=== PATIENT | female | born 1955 | race Caucasian/White ===

== ENCOUNTER → 2017-10-09 | Outpatient (CLI) | payer OTHER ==
[2017-10-09 12:11] LABS: HEMATOCRIT 33.5 % (37-47); HEMOGLOBIN 10.2 g/dL (12.0-16.0); MEAN CELL VOLUME 72.2 fL (80-100); MEAN CORPUSCULAR HGB CONC 30.4 g/dl (32-36); MEAN PLATELET VOLUME 9.7 fL (7.4-10.4); PLATELET COUNT 271 K/uL (130-400); RED CELL DISTRIBUTION WIDTH CV 18.2 % (11.5-14.5); RED CELL DISTRIBUTION WIDTH SD 48.2 fL (36.4-46.3); WHITE BLOOD COUNT 5.43 K/uL (4.8-10.8)
[2017-10-09 12:27] LABS: ALBUMIN 4.1 gm/dl (3.4-5.0); ALKALINE PHOSPHATASE 85 U/L (45-117); ALT/SGPT 28 U/L (12-78); AST/SGOT 25 U/L (15-37); BLOOD UREA NITROGEN 15 mg/dl (7-18); CALCIUM 8.7 mg/dl (8.5-10.1); CARBON DIOXIDE 27 mmol/L (21-32); CHOLESTEROL 258 mg/dl (0-200); CREATININE 0.83 mg/dl (0.60-1.20); GLUCOSE 91 mg/dl (70-99); LDL CHOLESTEROL CALCULATED 152 mg/dl; POTASSIUM 4.4 mmol/L (3.5-5.1); SODIUM 139 mmol/L (136-145); TOTAL PROTEIN 7.2 gm/dl (6.4-8.2)
[2017-10-09 12:32] LABS: BASO % 0.6 %; BASO ABS # 0.03 K/uL (0-0.2); EOS % 1.5 %; EOS ABS # 0.08 K/uL (0-0.5); IG# 0.01 K/uL (0.00-0.02); LYMPH % 23.4 %; LYMPH ABS # 1.27 K/uL (1.2-3.4); MONO % 6.1 %; MONO ABS # 0.33 K/uL (0.11-0.59); NEUT % 68.2 %; NEUT ABS # 3.71 K/uL (1.4-6.5)
== END | disposition home or self-care (01) ==
LOC: C.LAB1850 10:02
PROVIDERS: ATTEND Physician Assistant
DX: Z00.00 Encounter for general adult medical examination without abnormal findings (principal)

== ENCOUNTER 2022-07-21 08:20 | Inpatient (IN) ==
[2022-07-21] MEDS ORDERED: SODIUM CHLORIDE 0.9% 500 ML IV ONE (08:35)
[2022-07-21] MEDS ORDERED: ALBUT/IPRATROP 3MG/0.5MG NEB 3 ML VIAL NEB ONE (08:52)
[2022-07-21] MEDS ORDERED: methylPREDNISolone 125 MG/2 ML VIAL IV STA (08:57)
[2022-07-21] MEDS ORDERED: guaiFENesin 600 MG TABCR PO STA (08:57)
--- NOTE | 2022-07-21 09:11 | Emergency Department Note ---
Impression & Plan Multifocal pneumonia, Rhinovirus infection, COPD exacerbation, Elevated troponin, Chronic hypoxemic respiratory failure, Anemia ED Provider Note NAME: LAURITA FIGUEROA AGE: 67 SEX: F ARRIVES VIA: Walk-In INFORMANT: Patient ED PROVIDER(S): Lorenzo Stuart MD CHIEF COMPLAINT: SOB PLAN: Disposition: Admit MEDICAL DECISION MAKING: The patient is a pleasant 67-year-old woman with a past medical history of COPD, history of tobacco abuse, chronic hypoxic respiratory failure who presents emergency department via walk-in, accompanied by her daughter for evaluation of worsening shortness of breath since last night in the setting of having cough and congestion that began a week ago that initially improved with treatment with steroids and an antibiotic which were prescribed following valuation at urgent care. However since last night she reports feeling acutely worse where she cannot catch her breath. She reports pain with inspiration in the left lower anterior chest. She denies any recent fevers. She denies nausea, vomiting, diarrhea or urinary symptoms. The patient ports she does have oxygen at home as needed but does not usually use it. On arrival the patient is uncomfortable no acute distress, afebrile with heart rate in the 90s and vital signs otherwise stable. O2 saturations 92% on room air with mild increased work of breathing. Lungs with wheezes and rhonchi of the left greater than right lung rome. EKG without overt acute ischemia. CXR with bibasilar airspace opacities suspicious for pneumonia given the patient's presentation. WBC 27K with neutrophil predominance though no left shift this time which may be related to component of her recent steroid course but also with concern for pneumonia. H/H 10.8/33.5 decreased from November without more recent for comparison. Chemistry without metabolic acidosis with initial lactic acid elevated 2.4 suspected to be related to the patient's forceful coughing and work of breathing. Electrolytes without significant abnormality. LFTs unremarkable. High-sensitivity troponin 43, non-specific. Lipase is within normal limits. Procalcitonin is not elevated. Respiratory viral panel/bio fire was positive for enterovirus/rhinovirus. CTA of the chest was performed and was negative for PE though evaluation of distal segmental and subsegmental branches was degraded by motion artifact. Multifocal airspace consolidation is present at bilateral lung bases and is typical/suspicious for pneumonia/aspiration pneumonitis. Given the patient's presentation she was treated with IV Unasyn and azithromycin for suspected bacterial coinfection/aspiration pneumonia. She was additionally treated with Solu-Medrol, guaifenesin, hour-long DuoNeb with subsequent improvement in the patient's respiratory status. Patient family agree with plan for admission. [facility] [place] with Dr. Samayoa, evaluated the patient for admission. Triage Nursing notes reviewed and agree them. Prior/outside medical records reviewed Vital Signs: reviewed Differential diagnosis: Cardiac ischemia, aortic dissection, pulmonary embolism, pneumothorax, pneumonia, pericarditis, myocarditis, esophageal rupture, GERD, cholecystitis, p ancreatitis, musculoskeletal, as well as other pathologies. ER treatment provided: See below. Diagnostics interpreted by me: ECG: Normal sinus rhythm, 93 bpm, no ectopy, nonspecific ST abnormality, no overt ST elevation or depression, QTc 455, QRS 84 Cardiac Monitoring: An order for continuous cardiac monitoring was placed and demonstrated Normal sinus rhythm, 93 bpm, no ectopy. Laboratory studies: See below Imaging studies: See below Consultation(s): [facility] [place] with Dr. Samayoa, evaluated the patient for admission. HPI: The patient is a pleasant 67-year-old woman with a past medical history of COPD, history of tobacco abuse, chronic hypoxic respiratory failure who presents emergency department via walk-in, accompanied by her daughter for evaluation of worsening shortness of breath since last night in the setting of having cough and congestion that began a week ago that initially improved with treatment with steroids and an antibiotic which were prescribed following valuation at urgent care. However since last night she reports feeling acutely worse where she ca nnot catch her breath. She reports pain with inspiration in the left lower anterior chest. She denies any recent fevers. She denies nausea, vomiting, diarrhea or urinary symptoms. The patient ports she does have oxygen at home as needed but does not usually use it. ROS: See above HPI for pertinent positives & negatives. A total of 10 systems reviewed and were otherwise negative. VITALS:See Below PHYSICAL EXAMINATION: GENERAL: Awake, alert, uncomfortable-appearing, in no acute distress HENT: Normocephalic, atraumatic. Oropharynx with dry mucous membranes and otherwise unremarkable. EYES: Normal conjunctiva. Sclera non-icteric. NECK: Supple. No nuchal rigidity. FROM. No JVD. RESPIRATORY: Mild increased work of breathing. Lungs with wheezes and rhonchi of the left greater than right lung rome. CARDIAC: Regular rate, normal rhythm. Extremities warm and well perfused. Pulses equal. ABDOMEN: Soft, non-distended. No tenderness to palpation. No rebound or guarding. No masses. RECTAL: Deferred. MUSCULOSKELETAL: Chest examination reveals no tenderness. The back is symmetrical on inspection without obvious abnormality. There is no CVA tenderness to palpation. No joint edema. LOWER EXTREMITIES: Calves are equal size bilaterally and non-tender. No edema. No discoloration. NEURO: Normal sensorium. No sensory or motor deficits noted. SKIN: No rash or jaundice noted. ED COURSE: Critical Care: I have personally spent greater than 35 minutes of critical care time in the direct management of this patient. This includes bedside care, interpretation of diagnostic studies, and testing, discussion with consultants, patient, and family members, and other required patient management activities. This 35 minutes is in excess of all separately billable procedures. Lorenzo Stuart MD Past Med/Surg History Medical History Anemia iron daily Chronic hypoxemic respiratory failure COPD (chronic obstructive pulmonary disease) inhaler daily History of stomach ulcers History of tobacco abuse Melena Obesity (BMI 30.0-34.9) On home oxygen therapy oxygen 2L n/c prn Positive FIT (fecal immunochemical test) Rectal bleed 02/20/21 x1 episode. reason for procedure. SOB (shortness of breath) on exertion uses oxygen 2L prn SOB (shortness of breath) on exertion Surgical History H/O removal of cyst removed off head History of bilateral tubal ligation History of colonoscopy History of esophagogastroduodenoscopy (EGD) History of tooth extraction all teeth removed Family History Mother Ovarian cancer Breast cancer Sister Breast cancer Family/Other No problems noted. Father Diabetes Myocardial infarction Son Family history of reaction to anesthesia has difficulty waking with anesthesia Denies family history of Prostate cancer Colorectal cancer Social History Smoking Status: Former smoker Second Hand Exposure: No; Do You Dip or Chew Tobacco: No; Hx Alcohol Use: No Hx Substance Use: No Preferred Language: Malagasy Communication Ability: Effective Time Recorder Required: No Beliefs That Will Affect Care: None marital status: Single Current Living Situation: Family Current Living Situation Comment: Lives with daughter and 4 grandkids current occupational status: employed current occupation: [employer] Other Information That Helps Us Care for You: No Feels Safe at Home: Yes Safety Concerns: Feels Safe At This Time Childhood Exposure to Second-Hand Smoke: Yes Dental Care, Regularly: No Physical Activity Frequency: 5-6 Times per Week Seatbelt Use: always Sunscreen Use: Yes Assistive Devices: Denture - Upper, Denture - Lower and Glasses Allergies Allergies Allergy/AdvReac Type Severity Reaction Status Date / Time No Known Allergies Allergy Verified 03/22/22 13:27 Home Meds Home Medications Medication Instructions Recorded Confirmed Bifidobacterium infantis 4 mg 4 mg PO DAILY 02/22/21 07/21/22 capsule (Align) multivitamin 30 ml PO DAILY 07/21/22 07/21/22 Previous Rx's Medication Instructions Recorded Oxygen Home #2 L 06/12/19 albuterol sulfate 90 mcg/actuation 2 inh inhalation Q6H PRN shortness 09/14/21 aerosol inhaler of breath or wheezing #18 grams fluticasone fur. 100 mcg-umeclid 1 inh inhalation QAM #60 ea 07/11/22 62.5 mcg-vilant 25 mcg inhalat.powder (Trelegy Ellipta) Results & Data (ED) Vital Signs Vital Signs - 24 hr 07/21/22 08:28 07/21/22 08:35 07/21/22 08:47 Temperature 36.6 C Temperature Source Temporal Artery Scan Pulse Rate 104 H 99 H Pulse Rate [Apical] Pulse Rhythm Regular Respiratory Rate 18 Respiratory Effort / Characteristics Respiratory Depth Normal Respiratory Pattern Blood Pressure 147/88 H Blood Pressure [Left Arm] Blood Pressure Mean 107 Blood Pressure Mean [Left Arm] Blood Pressure Position Sitting Pulse Oximetry 93 91 Oxygen Delivery Method Room Air Room Air Room Air Sepsis Recent Fever Within 48 Hours No Sepsis New/Unexplained Change in Mental Status No Sepsis Action Taken by Nursing No Action Required 07/21/22 08:47 07/21/22 09:08 07/21/22 10:00 Temperature Temperature Source Pulse Rate 96 H Pulse Rate [Apical] 103 H Pulse Rhythm Respiratory Rate 20 Respiratory Effort / Characteristics Non-Labored Spontaneous Respiratory Depth Normal Normal Respiratory Pattern Regular Blood Pressure Blood Pressure [Left Arm] 114/75 Blood Pressure Mean Blood Pressure Mean [Left Arm] 88 Blood Pressure Position Pulse Oximetry 92 Oxygen Delivery Method Room Air Room Air Sepsis Recent Fever Within 48 Hours Sepsis New/Unexplained Change in Mental Status Sepsis Action Taken by Nursing 07/21/22 11:30 07/21/22 12:12 07/21/22 13:18 Temperature Temperature Source Pulse Rate 104 H Pulse Rate [Apical] 112 H 91 H Pulse Rhythm Respiratory Rate 21 19 Respiratory Effort / Characteristics Non-Labored Spontaneous Non-Labored Spontaneous Respiratory Depth Normal Normal Respiratory Pattern Regular Regular Blood Pressure Blood Pressure [Left Arm] 135/67 Blood Pressure Mean Blood Pressure Mean [Left Arm] 89 Blood Pressure Position Pulse Oximetry 91 91 Oxygen Delivery Method Room Air Room Air Sepsis Recent Fever Within 48 Hours Sepsis New/Unexplained Change in Mental Status Sepsis Action Taken by Nursing Laboratory Data Attestation: I reviewed the patient's lab results. 07/21/22 08:59 07/21/22 08:59 Lab Results 07/21/22 07/21/22 07/21/22 Range/Units 08:46 08:59 08:59 WBC 27.15 H (4.8-10.8) K/ul RBC 4.08 L (4.20-5.40) M/uL Hgb 10.8 L (12.0-16.0) g/dl Hct 33.5 L (37.0-47.0) % MCV 82.1 (80.0-100.0) fL MCH 26.5 (25.0-34.0) pg MCHC 32.2 (32.0-36.0) g/dL RDW Std Deviation 45.4 (36.4-46.3) fL RDW Coeff of Martine 15.1 H (11.5-14.5) % Plt Count 224 (130-400) K/uL MPV 10.3 (9.4-12.4) fL Immature Gran % (Auto) 0.7 % Neut % (Auto) 91.5 % Lymph % (Auto) 3.2 % Barrow % (Auto) 4.3 % Eos % (Auto) 0.1 % Baso % (Auto) 0.2 % Neut # (Auto) 24.84 H (1.40-6.50) K/uL Lymph # (Auto) 0.87 L (1.2-3.4) K/uL Barrow # (Auto) 1.17 H (0.11-0.59) K/uL Eos # (Auto) 0.02 (0-0.50) K/uL Baso # (Auto) 0.06 (0-0.2) K/uL Immature Gran # (Auto) 0.19 (0.01-0.20) K/uL Sodium 139 (136-145) mmol/L Potassium 4.0 (3.5-5.1) mmol/L Chloride 106 (98-107) mmol/L Carbon Dioxide 24 (21-32) mmol/L Anion Gap 9 (3-11) BUN 14 (6-23) mg/dl Creatinine 0.69 (0.6-1.2) mg/dl Est Cr Clr Drug Dosing 78.6 ml/min Est GFR ( Amer) 105.9 ml/min Est GFR (Non-Af Amer) 91.4 ml/min BUN/Creatinine Ratio 20.3 H (10-20) Glucose 112 H (70-99(Fasting)) mg/dl Lactate (0.4-2.0) mmol/L Calcium 9.3 (8.6-10.3) mg/dl Magnesium 1.9 (1.7-2.4) mg/dl Total Bilirubin 0.5 (0.2-1.0) mg/dl AST 18 (13-39) U/L ALT 15 (7-52) U/L Alkaline Phosphatase 68 (34-104) U/L Troponin I High Sens 43.8 H (0-14) pg/ml Total Protein 6.8 (6.0-8.3) gm/dl Albumin 4.2 (3.4-5.0) gm/dl Globulin 2.6 (2.5-4.0) gm/dl Albumin/Globulin Ratio 1.6 (0.9-2) Lipase 13 (11-82) U/L Procalcitonin (0-0.5) ng/ml Adenovirus (PCR) Not Detected (NotDetected) B. pertussis DNA (PCR) Not Detected (NotDetected) B.parapertussis DNA PCR Not Detected (NotDetected) C. pneumoniae DNA (PCR) Not Detected (NotDetected) Coronavirus OC43 (PCR) Not Detected (NotDetected) Coronavirus HKU1 (PCR) Not Detected (NotDetected) Coronavirus 229E (PCR) Not Detected (NotDetected) SARS-CoV-2 (PCR) Not Detected (NotDetected) Coronavirus NL63 (PCR) Not Detected (NotDetected) Human Metapneumovir PCR Not Detected (NotDetected) Influenza Type A (PCR) Not Detected (NotDetected) Influenza Type B (PCR) Not Detected (NotDetected) M. pneumoniae (PCR) Not Detected (NotDetected) Parainfluenza 1 (PCR) Not Detected (NotDetected) Parainfluenza 2 (PCR) Not Detected (NotDetected) Parainfluenza 3 (PCR) Not Detected (NotDetected) Parainfluenza 4 (PCR) Not Detected (NotDetected) RSV (PCR) Not Detected (NotDetected) Entero/Rhino (PCR) DETECTED A* (NotDetected) 07/21/22 07/21/22 07/21/22 Range/Units 09:00 12:02 13:00 WBC (4.8-10.8) K/ul RBC (4.20-5.40) M/uL Hgb (12.0-16.0) g/dl Hct (37.0-47.0) % MCV (80.0-100.0) fL MCH (25.0-34.0) pg MCHC (32.0-36.0) g/dL RDW Std Deviation (36.4-46.3) fL RDW Coeff of Martine (11.5-14.5) % Plt Count (130-400) K/uL MPV (9.4-12.4) fL Immature Gran % (Auto) % Neut % (Auto) % Lymph % (Auto) % Barrow % (Auto) % Eos % (Auto) % Baso % (Auto) % Neut # (Auto) (1.40-6.50) K/uL Lymph # (Auto) (1.2-3.4) K/uL Barrow # (Auto) (0.11-0.59) K/uL Eos # (Auto) (0-0.50) K/uL Baso # (Auto) (0-0.2) K/uL Immature Gran # (Auto) (0.01-0.20) K/uL Sodium (136-145) mmol/L Potassium (3.5-5.1) mmol/L Chloride (98-107) mmol/L Carbon Dioxide (21-32) mmol/L Anion Gap (3-11) BUN (6-23) mg/dl Creatinine (0.6-1.2) mg/dl Est Cr Clr Drug Dosing ml/min Est GFR ( Amer) ml/min Est GFR (Non-Af Amer) ml/min BUN/Creatinine Ratio (10-20) Glucose (70-99(Fasting)) mg/dl Lactate 2.4 H* (0.4-2.0) mmol/L Calcium (8.6-10.3) mg/dl Magnesium (1.7-2.4) mg/dl Total Bilirubin (0.2-1.0) mg/dl AST (13-39) U/L ALT (7-52) U/L Alkaline Phosphatase (34-104) U/L Troponin I High Sens 31.0 H D (0-14) pg/ml Total Protein (6.0-8.3) gm/dl Albumin (3.4-5.0) gm/dl Globulin (2.5-4.0) gm/dl Albumin/Globulin Ratio (0.9-2) Lipase (11-82) U/L Procalcitonin 0.28 (0-0.5) ng/ml Adenovirus (PCR) (NotDetected) B. pertussis DNA (PCR) (NotDetected) B.parapertussis DNA PCR (NotDetected) C. pneumoniae DNA (PCR) (NotDetected) Coronavirus OC43 (PCR) (NotDetected) Coronavirus HKU1 (PCR) (NotDetected) Coronavirus 229E (PCR) (NotDetected) SARS-CoV-2 (PCR) (NotDetected) Coronavirus NL63 (PCR) (NotDetected) Human Metapneumovir PCR (NotDetected) Influenza Type A (PCR) (NotDetected) Influenza Type B (PCR) (NotDetected) M. pneumoniae (PCR) (NotDetected) Parainfluenza 1 (PCR) (NotDetected) Parainfluenza 2 (PCR) (NotDetected) Parainfluenza 3 (PCR) (NotDetected) Parainfluenza 4 (PCR) (NotDetected) RSV (PCR) (NotDetected) Entero/Rhino (PCR) (NotDetected) 07/21/22 Range/Units 13:55 WBC (4.8-10.8) K/ul RBC (4.20-5.40) M/uL Hgb (12.0-16.0) g/dl Hct (37.0-47.0) % MCV (80.0-100.0) fL MCH (25.0-34.0) pg MCHC (32.0-36.0) g/dL RDW Std Deviation (36.4-46.3) fL RDW Coeff of Martine (11.5-14.5) % Plt Count (130-400) K/uL MPV (9.4-12.4) fL Immature Gran % (Auto) % Neut % (Auto) % Lymph % (Auto) % Barrow % (Auto) % Eos % (Auto) % Baso % (Auto) % Neut # (Auto) (1.40-6.50) K/uL Lymph # (Auto) (1.2-3.4) K/uL Barrow # (Auto) (0.11-0.59) K/uL Eos # (Auto) (0-0.50) K/uL Baso # (Auto) (0-0.2) K/uL Immature Gran # (Auto) (0.01-0.20) K/uL Sodium (136-145) mmol/L Potassium (3.5-5.1) mmol/L Chloride (98-107) mmol/L Carbon Dioxide (21-32) mmol/L Anion Gap (3-11) BUN (6-23) mg/dl Creatinine (0.6-1.2) mg/dl Est Cr Clr Drug Dosing ml/min Est GFR ( Amer) ml/min Est GFR (Non-Af Amer) ml/min BUN/Creatinine Ratio (10-20) Glucose (70-99(Fasting)) mg/dl Lactate 2.7 H* (0.4-2.0) mmol/L Calcium (8.6-10.3) mg/dl Magnesium (1.7-2.4) mg/dl Total Bilirubin (0.2-1.0) mg/dl AST (13-39) U/L ALT (7-52) U/L Alkaline Phosphatase (34-104) U/L Troponin I High Sens (0-14) pg/ml Total Protein (6.0-8.3) gm/dl Albumin (3.4-5.0) gm/dl Globulin (2.5-4.0) gm/dl Albumin/Globulin Ratio (0.9-2) Lipase (11-82) U/L Procalcitonin (0-0.5) ng/ml Adenovirus (PCR) (NotDetected) B. pertussis DNA (PCR) (NotDetected) B.parapertussis DNA PCR (NotDetected) C. pneumoniae DNA (PCR) (NotDetected) Coronavirus OC43 (PCR) (NotDetected) Coronavirus HKU1 (PCR) (NotDetected) Coronavirus 229E (PCR) (NotDetected) SARS-CoV-2 (PCR) (NotDetected) Coronavirus NL63 (PCR) (NotDetected) Human Metapneumovir PCR (NotDetected) Influenza Type A (PCR) (NotDetected) Influenza Type B (PCR) (NotDetected) M. pneumoniae (PCR) (NotDetected) Parainfluenza 1 (PCR) (NotDetected) Parainfluenza 2 (PCR) (NotDetected) Parainfluenza 3 (PCR) (NotDetected) Parainfluenza 4 (PCR) (NotDetected) RSV (PCR) (NotDetected) Entero/Rhino (PCR) (NotDetected) Administered Medications Ampicillin Sodium/Sulbactam Sodium 1,500 mg/ Sodium Chloride 104 mls @ 200 mls/hr IV Q6H [facility]; Protocol Stop: 07/28/22 15:59 Last Admin: 07/21/22 22:16 Dose: 200 mls/hr Documented By: Infusion: 07/21/22 17:48 Dose: 0 mls/hr Documented By: Admin: 07/21/22 17:16 Dose: 200 mls/hr Documented By: KRISTI Discontinued Medications Albuterol (Albut/Ipratrop 3mg/0.5mg Neb 3 Ml Vial) 12 ml NEB ONE ONE; Protocol Stop: 07/21/22 08:53 Last Admin: 07/21/22 10:05 Dose: 12 ml Documented By: KEENA Guaifenesin (Guaifenesin 600 Mg Tabcr) 1,200 mg PO NOW STA Stop: 07/21/22 08:58 Last Admin: 07/21/22 09:14 Dose: 1,200 mg Documented By: KEENA Sodium Chloride (Nss) 500 mls @ 999 mls/hr IV .Q31M ONE Stop: 07/21/22 09:05 Last Infusion: 07/21/22 09:46 Dose: 0 mls/hr Documented By: Admin: 07/21/22 09:15 Dose: 999 mls/hr Documented By: KEENA Ampicillin Sodium/Sulbactam Sodium 3,000 mg/ Sodium Chloride 108 mls @ 200 mls/hr IV NOW STA; Protocol Stop: 07/21/22 12:18 Last Infusion: 07/21/22 12:55 Dose: 0 mls/hr Documented By: Admin: 07/21/22 12:18 Dose: 200 mls/hr Documented By: KEENA Azithromycin 500 mg/ Dextrose 255 mls @ 127.5 mls/hr IV NOW STA Stop: 07/21/22 13:45 Last Infusion: 07/21/22 15:40 Dose: 0 mls/hr Documented By: Admin: 07/21/22 12:59 Dose: 127.5 mls/hr Documented By: KEENA Ioversol (Optiray 320 500ml) 120 ml IV ONCE ONE Stop: 07/21/22 11:12 Last Admin: 07/21/22 11:12 Dose: 120 ml Documented By: DEBI Methylprednisolone (Methylprednisolone 125 Mg/2 Ml Vial) 125 mg IV NOW STA Stop: 07/21/22 08:58 Last Admin: 07/21/22 09:14 Dose: 125 mg Documented By: KEENA Imaging Data Radiologist's Impression: Chest CTA 07/21/22 08:59 CT ANGIOGRAM OF THE CHEST CLINICAL HISTORY: Dyspnea. Atypical chest pain. COMPARISON STUDY: Chest x-ray dated 07/21/2022. Chest CT dated 10/26/2021. TECHNIQUE: Following the IV administration of 120 cc of Optiray 320, CT angiogram of the chest was performed from the upper abdomen to the thoracic inlet utilizing the pulmonary embolus protocol. Images are reviewed in the axial, sagittal, and coronal planes. 3-D MIPS images are created and assessed. IV contrast was administered without complication. A dose lowering technique was utilized adhering to the principles of ALARA. The examination is significantly degraded by motion artifact. CT DOSE: 404.84 mGy.cm FINDINGS: Thyroid: Imaged portions of the thyroid gland are normal in size and attenuation. Thoracic aorta: There is atherosclerotic calcification of the thoracic aorta, which is normal in caliber and demonstrates standard 3-vessel arch anatomy. No dissection is seen. Pulmonary vasculature: The main pulmonary arteries are dilated suggesting pulmonary artery hypertension. There are no filling defects identified in main, lobar, or proximal segmental pulmonary branches to suggest pulmonary embolus. Evaluation of the distal segmental and subsegmental branches is degraded by motion artifact. Heart: The heart is top normal in size and without pericardial effusion. There are coronary artery calcifications. Lungs and pleural spaces: Evaluation of the lung parenchyma is significantly compromised by motion artifact. Emphysematous changes noted. There is multifocal patchy airspace consolidation seen at both lung bases, left greater than right. No pleural effusion is identified. The trachea and central airways appear clear. Mediastinum: There is no mediastinal lymphadenopathy. Gianna: Clear. Axillae: There is no axillary lymphadenopathy. Upper abdomen: Partially visualized upper abdominal viscera is within normal limits. Skeletal structures: The skeletal structures are osteopenic. No lytic or blastic bony lesions are seen. IMPRESSION: 1. Significantly motion degraded examination. 2. There is no evidence of central pulmonary embolus in the main, lobar, or proximal segmental pulmonary arteries. Evaluation of the distal segmental and subsegmental branches is significantly degraded by motion artifact. 3. Emphysema. 4. Multifocal airspace consolidation is present at both lung bases. This is typical for pneumonia/aspiration pneumonitis. Clinical correlation will be required and radiographic follow-up to resolution is recommended. 5. Additional findings as above. ACT 112: Negative or not required by law. Electronically signed by: Bal Douglas M.D. 07/21/2022 11:38 AM Discharge Plan Visit Data Chief Complaint: Shortness of Breath/Dyspnea Stated Complaint: SOB, CHEST PAIN ED Provider: Lorenzo Stuart Discharge Problem: Multifocal pneumonia, Rhinovirus infection, COPD exacerbation, Elevated troponin, Chronic hypoxemic respiratory failure, Anemia Patient Disposition: Admitted As Inpatient Discharge Instructions Interventions: ED Discharge Assessment Last Done: 07/21/22 15:36
--- NOTE | 2022-07-21 09:44 | XRay Report ---
SINGLE VIEW CHEST CLINICAL HISTORY: Atypical chest pain FINDINGS: An AP, portable, upright chest radiograph is compared to study dated 06/12/2019 and correlat ed with chest CT dated 10/26/2021. The examination is degraded by portable technique and apical lordoti c positioning. The cardiomediastinal silhouette is unremarkable noting atherosclerotic calcification of the thoracic aorta. Emphysema and chronic interstitial thickening is similar to previous. There ar e bibasilar airspace opacities. No large pleural effusion or pneumothorax Is seen. The skeletal struc tures are osteopenic. The bony thorax is grossly intact. IMPRESSION: 1. Bibasilar airspace opacities likely represent scarring/atelectasis. Correlate clinically for evide nce of a superimposed infectious/inflammatory pneumonitis. 2. Emphysema. ACT 112: Negative or not required by law. Electronically signed by: Bal Douglas M.D. 07/21/2022 9:43 AM
[2022-07-21 09:46] LABS: Albumin Globulin Ratio 1.6 (0.9-2); Albumin Level 4.2 gm/dl (3.4-5.0); BUN Creatinine Ratio 20.3 (10-20); Bilirubin,Total 0.5 mg/dl (0.2-1.0); Calcium 9.3 mg/dl (8.6-10.3); Creatinine Clr Calc Pharmacy 78.6 ml/min; Est GFR (African American) 105.9 ml/min; Est GFR (Non-African American) 91.4 ml/min; Globulin 2.6 gm/dl (2.5-4.0); Magnesium 1.9 mg/dl (1.7-2.4); Total Protein 6.8 gm/dl (6.0-8.3)
[2022-07-21 09:49] LABS: Hematocrit (blood only) 33.5 % (37.0-47.0); Hemoglobin 10.8 g/dl (12.0-16.0); Mean Corpuscular Hemoglobin 26.5 pg (25.0-34.0); Mean Corpuscular Hgb Conc 32.2 g/dL (32.0-36.0); Mean Corpuscular Volume 82.1 fL (80.0-100.0); Mean Platelet Volume 10.3 fL (9.4-12.4); Platelet Count 224 K/uL (130-400); RDW Coefficient of Variation 15.1 % (11.5-14.5); RDW Standard Deviation 45.4 fL (36.4-46.3); Red Blood Count 4.08 M/uL (4.20-5.40); White Blood Count 27.15 K/ul (4.8-10.8)
[2022-07-21 09:52] LABS: Troponin I High Sensitivity 43.8 pg/ml (0-14)
[2022-07-21 10:15] LABS: Basophils # (auto) 0.06 K/uL (0-0.2); Basophils % (auto) 0.2 %; Eosinophils # (auto) 0.02 K/uL (0-0.50); Eosinophils % (auto) 0.1 %; Immature Granulocytes # (auto) 0.19 K/uL (0.01-0.20); Immature Granulocytes % (auto) 0.7 %; Lymphocytes # (auto) 0.87 K/uL (1.2-3.4); Lymphocytes % (auto) 3.2 %; Monocytes # (auto) 1.17 K/uL (0.11-0.59); Monocytes % (auto) 4.3 %; Neutrophils # (auto) 24.84 K/uL (1.40-6.50); Neutrophils % (auto) 91.5 %
[2022-07-21 10:41] LABS: Adenovirus PCR Not Detected (NotDetected); Bordetella parapertussis PCR Not Detected (NotDetected); Bordetella pertussis PCR Not Detected (NotDetected); Chlamydia pneumoniae PCR Not Detected (NotDetected); Coronavirus 229E PCR Not Detected (NotDetected); Coronavirus CoV-2 (COVID19)PCR Not Detected (NotDetected); Coronavirus HKU1 PCR Not Detected (NotDetected); Coronavirus NL63 PCR Not Detected (NotDetected); Coronavirus OC43PCR Not Detected (NotDetected); Human Metapneumovirus PCR Not Detected (NotDetected); Influenza A PCR Not Detected (NotDetected); Influenza B PCR Not Detected (NotDetected); Mycoplasma pneumoniae PCR Not Detected (NotDetected); Parainfluenza Virus 1 PCR Not Detected (NotDetected); Parainfluenza Virus 2 PCR Not Detected (NotDetected); Parainfluenza Virus 3 PCR Not Detected (NotDetected); Parainfluenza Virus 4 PCR Not Detected (NotDetected); Respiratory Syncytial VirusPCR Not Detected (NotDetected)
[2022-07-21 10:53] LABS: Rhinovirus/Enterovirus PCR DETECTED (NotDetected)
[2022-07-21] MEDS ORDERED: OPTIRAY 320 500ml IV ONE (11:11)
--- NOTE | 2022-07-21 11:40 | CT Scan Report ---
CT ANGIOGRAM OF THE CHEST CLINICAL HISTORY: Dyspnea. Atypical chest pain. COMPARISON STUDY: Chest x-ray dated 07/21/2022. Chest CT dated 10/26/2021. TECHNIQUE: Following the IV administration of 120 cc of Optiray 320, CT angiogram of the chest was pe rformed from the upper abdomen to the thoracic inlet utilizing the pulmonary embolus protocol. Images are reviewed in the axial, sagittal, and coronal planes. 3-D MIPS images are created and assessed. I V contrast was administered without complication. A dose lowering technique was utilized adhering to the principles of ALARA. The examination is significantly degraded by motion artifact. CT DOSE: 404.84 mGy.cm FINDINGS: Thyroid: Imaged portions of the thyroid gland are normal in size and attenuation. Thoracic aorta: There is atherosclerotic calcification of the thoracic aorta, which is normal in linda denise and demonstrates standard 3-vessel arch anatomy. No dissection is seen. Pulmonary vasculature: The main pulmonary arteries are dilated suggesting pulmonary artery hypertensi on. There are no filling defects identified in main, lobar, or proximal segmental pulmonary branches to suggest pulmonary embolus. Evaluation of the distal segmental and subsegmental branches is degrade d by motion artifact. Heart: The heart is top normal in size and without pericardial effusion. There are coronary artery ca lcifications. Lungs and pleural spaces: Evaluation of the lung parenchyma is significantly compromised by motion ar tifact. Emphysematous changes noted. There is multifocal patchy airspace consolidation seen at both l karina bases, left greater than right. No pleural effusion is identified. The trachea and central airway s appear clear. Mediastinum: There is no mediastinal lymphadenopathy. Gianna: Clear. Axillae: There is no axillary lymphadenopathy. Upper abdomen: Partially visualized upper abdominal viscera is within normal limits. Skeletal structures: The skeletal structures are osteopenic. No lytic or blastic bony lesions are see n. IMPRESSION: 1. Significantly motion degraded examination. 2. There is no evidence of central pulmonary embolus in the main, lobar, or proximal segmental pulmon sujit arteries. Evaluation of the distal segmental and subsegmental branches is significantly degraded by motion artifact. 3. Emphysema. 4. Multifocal airspace consolidation is present at both lung bases. This is typical for pneumonia/asp iration pneumonitis. Clinical correlation will be required and radiographic follow-up to resolution i s recommended. 5. Additional findings as above. ACT 112: Negative or not required by law. Electronically signed by: Bal Douglas M.D. 07/21/2022 11:38 AM
[2022-07-21] MEDS ORDERED: AZITHROMYCIN 500 MG in DEXTROSE 5% 250 ML IV STA (11:46)
[2022-07-21] MEDS ORDERED: AMPICILLIN/SULBACTAM SOD 3,000 MG in 0.9 % SODIUM CHLORIDE 100 ML IV STA (11:46)
--- NOTE | 2022-07-21 12:24 | History & Physical Report ---
Date of Service July 21, 2022 Assessment & Plan (1) COPD (chronic obstructive pulmonary disease): Plan: - Patient had 43 pack year history of smoking - Continue Trelegy/ellipta inhaler or hospital equivalent - Oxygen nc to maintain O2 saturation >89 (2) Chronic hypoxemic respiratory failure: Plan: - Follows with pulmonology - had overnight pulse ox test and desaturated and recommended to use 2 L oxygen at night (patient is not compliant ) (3) Anemia: Plan: - Previously had been on oral iron daily - per patient - she was taken off and not sure when - Will get iron studies - no evidence of any active GI bleeding - UTD with EGD and Colonoscopy (4) Pneumonia: Plan: - elevated WBC (previous steroid use) - will trend - Continue Unasyn and Zithromax for now (5) History of tobacco abuse: Plan: - Quit smoking 5-6 years ago, follows with pulm (6) Elevated troponin: Plan: - continue to trend - monitor on tele Plan - Admit to med tele - trend troponin - trend labs/wbc - Full Code status - SCD Lovenox History of Present Illness Chief Complaint: increasing SOB,cough and congestion Primary Care Provider: Sahara Becker MD Sydnie Garner is a 67 year old with a past medical history of COPD, 43 pack year history of smoking (quit 5-6 year ago), chronic hypoxic respiratory failure who presented to the ER today as a walkin with complaints of congestion,cough and increasing SOB X 2 days. Patient states her initial symptoms began with congestion and productive cough 1 weeks ago and she went ot an urgent care center and was rx Levaquin one daily for 5 days and a tapering medrol dose pack for 1 week. She states initially after she finished the steroids and antibiotic she was feeling better. Then 2 days ago began to have increasing SOB and a nonproductive cough. She does follow with Dr Bradshaw (pulm) and uses her Trelegy/ellipta inhaler every day. Per the pulm note she is to wear 2 L O2 at night and if needed with exertion. She states she has home Oxygen but never uses it. She states her SOB is only with exertion. She denies any chest pain currently. She denies any GI sxs, diarrhea, abdominal pain, nausea, vomiting or dysphagia. She denies any hemoptysis or unintentional weight loss. VSS and patient is afebrile. WBC elevated at 27, procal normal, + entero/rhino, lactate pending. Initial trop elevated at 43.8, repeat trop is pending. CXR and CTA revealed no PE, multifocal airspace consolidation at both lung bases. Patient had EGD 03/14 with small H/H and duodenitis. Allergies Allergy/AdvReac Type Severity Reaction Status Date / Time No Known Allergies Allergy Verified 03/22/22 13:27 Home Medications Medication Instructions Recorded Confirmed Type Oxygen Home #2 L 06/12/19 03/22/22 Rx Bifidobacterium infantis 4 mg 4 mg PO DAILY 02/22/21 07/21/22 History capsule (Align) albuterol sulfate 90 mcg/actuation 2 inh inhalation Q6H PRN shortness 09/14/21 07/21/22 Rx aerosol inhaler of breath or wheezing #18 grams fluticasone fur. 100 mcg-umeclid 1 inh inhalation QAM #60 ea 07/11/22 07/21/22 Rx 62.5 mcg-vilant 25 mcg inhalat.powder (Trelegy Ellipta) multivitamin 30 ml PO DAILY 07/21/22 07/21/22 History Past Med/Surg History Medical History Anemia iron daily Chronic hypoxemic respiratory failure COPD (chronic obstructive pulmonary disease) inhaler daily History of stomach ulcers History of tobacco abuse Melena Obesity (BMI 30.0-34.9) On home oxygen therapy oxygen 2L n/c prn Positive FIT (fecal immunochemical test) Rectal bleed 02/20/21 x1 episode. reason for procedure. SOB (shortness of breath) on exertion uses oxygen 2L prn SOB (shortness of breath) on exertion Surgical History H/O removal of cyst removed off head History of bilateral tubal ligation History of colonoscopy History of esophagogastroduodenoscopy (EGD) History of tooth extraction all teeth removed Family History Mother Ovarian cancer Breast cancer Sister Breast cancer Family/Other No problems noted. Father Diabetes Myocardial infarction Son Family history of reaction to anesthesia has difficulty waking with anesthesia Denies family history of Prostate cancer Colorectal cancer Social History Smoking Status: Current every day smoker Second Hand Exposure: No; Do You Dip or Chew Tobacco: No; Hx Alcohol Use: No Hx Substance Use: No Preferred Language: Bruneian Communication Ability: Effective Hygiene Coordinator Required: No Beliefs That Will Affect Care: None marital status: Single Current Living Situation: Family Current Living Situation Comment: Lives with daughter and 4 grandkids current occupational status: employed current occupation: [employer] Feels Safe at Home: Yes Childhood Exposure to Second-Hand Smoke: Yes Dental Care, Regularly: No Physical Activity Frequency: 5-6 Times per Week Seatbelt Use: always Sunscreen Use: Yes Assistive Devices: Denture - Upper, Denture - Lower and Glasses Review of Systems Constitutional: + chills, + fatigue and + weight gain; no fever Ear, Nose, Mouth, Throat: no ear pain, no post nasal drip and no sinus pain/pressure Respiratory: + cough and + dyspnea on exertion; no chest congestion and no hemoptysis Cardiovascular: + dyspnea on exertion; no chest pain, no chest pain with activity, no dyspnea at rest, no syncope and no edema Gastrointestinal: no abdominal pain, no nausea, no vomiting, no dysphagia, no diarrhea/loose stools and no blood in stools Integumentary: no rash, no lesions and no new lesions Psychiatric: no hopelessness, no suicidal ideation and no anxiety Physical Exam Constitutional: WD/WN, vitals as above Neck: trachea midline, no thyromegaly Respiratory: decreased breath sounds bilaterally no W/R/R Cardiovascular: Rate/Rhythm: regular rate and regular rhythm Heart Sounds: normal S1 and normal S2 Gastrointestinal (Abdomen): normal bowel sounds, soft, nontender, no hepatosplenomegaly Psychiatric: A+Ox3, euthymic affect Results & Data Results & Data Vital Signs (Past 12 Hours) Vital Signs Temp Pulse Pulse Resp BP BP Pulse Ox 07/21/22 12:12 91 H 19 91 07/21/22 11:30 112 H 21 135/67 91 07/21/22 10:00 07/21/22 09:08 96 H 07/21/22 08:47 103 H 20 114/75 92 04/29/23 08:47 07/21/22 08:35 99 H 91 07/21/22 08:28 36.6 C 104 H 18 147/88 H 93 O2 Del Method 07/21/22 12:12 Room Air 07/21/22 11:30 Room Air 07/21/22 10:00 Room Air 07/21/22 09:08 07/21/22 08:47 Room Air 07/21/22 08:47 Room Air 07/21/22 08:35 Room Air 07/21/22 08:28 Room Air Laboratory Results Abnormal lab results 07/21/22 07/21/22 07/21/22 Range/Units 08:46 08:59 08:59 WBC 27.15 H (4.8-10.8) K/ul RBC 4.08 L (4.20-5.40) M/uL Hgb 10.8 L (12.0-16.0) g/dl Hct 33.5 L (37.0-47.0) % RDW Coeff of Martine 15.1 H (11.5-14.5) % Neut # (Auto) 24.84 H (1.40-6.50) K/uL Lymph # (Auto) 0.87 L (1.2-3.4) K/uL [place] # (Auto) 1.17 H (0.11-0.59) K/uL BUN/Creatinine Ratio 20.3 H (10-20) Glucose 112 H (70-99(Fasting)) mg/dl Troponin I High Sens 43.8 H (0-14) pg/ml Entero/Rhino (PCR) DETECTED A* (NotDetected) Diagnostic Findings Chest X-Ray 07/21/22 08:35 SINGLE VIEW CHEST CLINICAL HISTORY: Atypical chest pain FINDINGS: An AP, portable, upright chest radiograph is compared to study dated 06/12/2019 and correlated with chest CT dated 10/26/2021. The examination is degraded by portable technique and apical lordotic positioning. The cardiomediastinal silhouette is unremarkable noting atherosclerotic calcification of the thoracic aorta. Emphysema and chronic interstitial thickening is similar to previous. There are bibasilar airspace opacities. No large pleural effusion or pneumothorax Is seen. The skeletal structures are osteopenic. The bony thorax is grossly intact. IMPRESSION: 1. Bibasilar airspace opacities likely represent scarring/atelectasis. Correlate clinically for evidence of a superimposed infectious/inflammatory pneumonitis. 2. Emphysema. ACT 112: Negative or not required by law. Electronically signed by: Bal Douglas M.D. 07/21/2022 9:43 AM Chest CTA 07/21/22 08:59 CT ANGIOGRAM OF THE CHEST CLINICAL HISTORY: Dyspnea. Atypical chest pain. COMPARISON STUDY: Chest x-ray dated 07/21/2022. Chest CT dated 10/26/2021. TECHNIQUE: Following the IV administration of 120 cc of Optiray 320, CT angiogram of the chest was performed from the upper abdomen to the thoracic inle t utilizing the pulmonary embolus protocol. Images are reviewed in the axial, sagittal, and coronal planes. 3-D MIPS images are created and assessed. IV contrast was administered without complication. A dose lowering technique was utilized adhering to the principles of ALARA. The examination is significantly degraded by motion artifact. CT DOSE: 404.84 mGy.cm FINDINGS: Thyroid: Imaged portions of the thyroid gland are normal in size and attenuation. Thoracic aorta: There is atherosclerotic calcification of the thoracic aorta, which is normal in caliber and demonstrates standard 3-vessel arch anatomy. No dissection is seen. Pulmonary vasculature: The main pulmonary arteries are dilated suggesting pulmonary artery hypertension. There are no filling defects identified in main, lobar, or proximal segmental pulmonary branches to suggest pulmonary embolus. Evaluation of the distal segmental and subsegmental branches is degraded by motion artifact. Heart: The heart is top normal in size and without pericardial effusion. There are coronary artery calcifications. Lungs and pleural spaces: Evaluation of the lung parenchyma is significantly compromised by motion artifact. Emphysematous changes noted. There is multifocal patchy airspace consolidation seen at both lung bases, left greater than right. No pleural effusion is identified. The trachea and central airways appear clear. Mediastinum: There is no mediastinal lymphadenopathy. Gianna: Clear. Axillae: There is no axillary lymphadenopathy. Upper abdomen: Partially visualized upper abdominal viscera is within normal limits. Skeletal structures: The skeletal structures are osteopenic. No lytic or blastic bony lesions are seen. IMPRESSION: 1. Significantly motion degraded examination. 2. There is no evidence of central pulmonary embolus in the main, lobar, or proximal segmental pulmonary arteries. Evaluation of the distal segmental and subsegmental branches is significantly degraded by motion artifact. 3. Emphysema. 4. Multifocal airspace consolidation is present at both lung bases. This is typical for pneumonia/aspiration pneumonitis. Clinical correlation will be required and radiographic follow-up to resolution is recommended. 5. Additional findings as above. ACT 112: Negative or not required by law. Electronically signed by: Bal Douglas M.D. 07/21/2022 11:38 AM Supervising Physician Co-Signing Physician Notes Patient seen and examined, chart reviewed, case discussed with Ernestina James PA-C and I agree with the assessment and plan as above except as otherwise noted Labs and images reviewed She is a 67-year-old female who presents for concern of continued COPD exace rbation and difficulty breathing. She has a ongoing history of 40 pack years of tobacco use, COPD on Trelegy. She has chronic respiratory failure with home oxygen requirement with which she is noncompliant with at home. Patient presents with cough, congestion, increasing shortness of breath after she was seen in urgent care and was on Levaquin for 5 days with a tapering steroid pack. She reports she did initially improve, but 2 days prior to presentation again had a increase in shortness of breath and cough. She is enterovirus and rhinovirus positive, CT shows multifocal airspace consolidations in both lung bases. Given leukocytosis, and consolidations agree with treating as superimposed pneumonia with antibiotics; she is continued on Unasyn/azithromycin tobacco cessation recommended. At bedside she is with basilar crackles but no wheezing, symmetrical chest rise, sinus tachycardia, no acute distress. Agree with recommendations and management above PG Care Time/CCT Total # of Minutes Spent Total Time Spent with Patient: Total time spent is greater than 50% in coordination of care (as documented) at patient's floor/unit and/or counseling patient: Coding Level of Care Code 05605 INT INP/OBS CARE 40MIN Diagnoses COPD (chronic obstructive pulmonary disease) J44.9 Chronic hypoxemic respiratory failure J96.11 Anemia D64.9 Pneumonia J18.9 History of tobacco abuse Z87.891 Elevated troponin R77.8
[2022-07-21] MEDS ORDERED: ACETAMINOPHEN 325 MG TAB PO PRN (15:48)
[2022-07-21] MEDS ORDERED: ONDANSETRON INJ 2 MG/ML 2 ML VIAL IV PRN (15:48)
[2022-07-21] MEDS ORDERED: NITROGLYCERIN SL 0.4 MG/TAB TAB SL PRN (15:48)
[2022-07-21] MEDS ORDERED: ALBUTEROL HFA 8 GM INHALER INH PRN (15:48)
[2022-07-21] MEDS: AMPICILLIN/SULBACTAM SOD 1,500 MG in 0.9 % SODIUM CHLORIDE 100 ML IV SCH ×2 (17:16→22:16)
[2022-07-22] MEDS: AMPICILLIN/SULBACTAM SOD 1,500 MG in 0.9 % SODIUM CHLORIDE 100 ML IV SCH ×4 (04:50→21:22)
[2022-07-22 07:53] LABS: Hemoglobin 9.7 g/dl (12.0-16.0); Mean Corpuscular Hemoglobin 26.8 pg (25.0-34.0); Mean Corpuscular Hgb Conc 32.3 g/dL (32.0-36.0); Mean Corpuscular Volume 82.9 fL (80.0-100.0); Mean Platelet Volume 10.3 fL (9.4-12.4); Platelet Count 210 K/uL (130-400); RDW Coefficient of Variation 15.7 % (11.5-14.5); RDW Standard Deviation 47.8 fL (36.4-46.3); Red Blood Count 3.62 M/uL (4.20-5.40); White Blood Count 21.09 K/ul (4.8-10.8)
[2022-07-22 08:11] LABS: BUN Creatinine Ratio 24.2 (10-20); Calcium 8.9 mg/dl (8.6-10.3); Creatinine Clr Calc Pharmacy 82.3 ml/min; Est GFR (African American) 107.4 ml/min; Est GFR (Non-African American) 92.7 ml/min; Magnesium 2.3 mg/dl (1.7-2.4); Potassium 4.2 mmol/L (3.5-5.1)
[2022-07-22 08:31] LABS: Ferritin 25.4 ng/ml (8-388)
[2022-07-22] MEDS ORDERED: IRON SUCROSE 300 MG in SODIUM CHLORIDE 0.9% 250 ML IV ONE (08:45)
[2022-07-22] MEDS: UMECLIDINIUM/VILANTEROL 62.5/25MCG 7 PUFFS/INHALER INH SCH (09:13)
[2022-07-22] MEDS: FLUTICASONE FUROATE 100MCG 14 PUFFS/INHALER INH SCH (09:14)
[2022-07-22] MEDS: AZITHROMYCIN 250 MG TAB PO SCH (09:16)
[2022-07-22] MEDS: ALBUTEROL HFA 8 GM INHALER INH SCH ×3 (13:07→19:24)
--- NOTE | 2022-07-22 15:18 | Hospitalist Progress Note ---
Date of Service July 22, 2022 Assessment & Plan (1) Pneumonia: Plan: Presents with cough and increasing shortness of breath x1 week. Treated with Levaquin x5 days and Medrol Dosepak x1 week leading up to arrival. Found to have pneumonia on chest x-ray and CT a chest performed which was negative for PE but does show emphysema and multifocal pneumonia Respiratory bio fire panel positive for rhino/enterovirus With leukocytosis likely from recent steroid burst, lactic acidosis likely from hypoxia, and negative procalcitonin, this is most likely viral pneumonia. However, we will continue antibiotics with Unasyn and azithromycin started on admission to cover in case of secondary bacterial pneumonia -Check sputum culture -Continue Unasyn and azithromycin x5-day course -Follow blood cultures-no growth to date -Continue supplemental O2 to keep pulse ox ox greater than 88% given severe COPD -Continue albuterol and schedule to be given every 6 hours rather than as needed -Start guaifenesin DM as needed -Follow chest imaging to resolution in 4 to 6 weeks (2) Rhinovirus infection: Plan: As above Supportive care Isolation precautions (3) COPD (chronic obstructive pulmonary disease): Plan: - Patient had 43 pack year history of smoking - Continue Trelegy/ellipta inhaler or hospital equivalent -Continue albuterol nebs scheduled - Oxygen nc to maintain O2 saturation >89 -Was given IV Solu-Medrol in the ER, will add on prednisone 40 mg p.o. once daily for total 5-day course -Add on flutter valve (4) Chronic hypoxemic respiratory failure: Plan: Acute on chronic respiratory failure with hypoxia - Follows with pulmonology - had overnight pulse ox test and desaturated and recommended to use 2 L oxygen at night and 2 L nasal cannula with exertion-patient has not felt the need to use oxygen at home -Will need a repeat two-step walk test prior to discharge (5) Anemia: Plan: Has a history of anemia in 2020 She has had EGD in 02/2021 which showed gastritis and was positive for H elicobacter pylori. She was treated for H. pylori at that time Colonoscopy in 09/2020 with internal hemorrhoids nonbleeding Since that time, her hemoglobin trended back to normal in 2021 but is now down again to 10, microcytic Transferrin saturation here is very low at 3% No obvious bleeding -Give IV Venofer 300 mg daily x3 doses -Needs follow-up with GI for repeat EGD and colonoscopy, possible video capsule endoscopy as an outpatient -Add Protonix 40 mg p.o. once daily at least while on prednisone given history of gastritis and GI bleeding (6) Elevated troponin: Plan: Troponin mildly elevated on admission at 43 and then trended downward to 31 No chest pain, no ischemic changes on ECG Echocardiogram ordered Likely demand ischemia from hypoxia and pneumonia (7) Murmur, cardiac: Plan: 3/6 holosystolic murmur heard best at the apex radiating to the axilla Suspect mitral valve regurgitation No baseline echocardiogram Check echocardiogram here Plan DVT prophylaxis-add Lovenox Disposition-continued stay on medical floor with telemetry unit Admission and Anticipated Discharge Date Admission Date: July 21, 2022 Subjective Patient reports feeling much better. Coughing up a lot of sputum. Remains on oxygen. No chest pains. No nausea or vomiting or diarrhea, no abdominal pains. She is eating. Telemetry with normal sinus rhythm with rates in the 90s Discussed her care with her daughter at the bedside Physical Exam Constitutional: WD/WN, vitals as above Neck: trachea midline, no thyromegaly Respiratory: normal respiratory effort and + cough Auscultation: + diminished lung sounds (Diminished breath sounds throughout); no crackles, no rhonchi and no wheezes Cardiovascular: Rate/Rhythm: regular rate and regular rhythm Heart Sounds: + murmur (3/6 holosystolic murmur heard best at the apex radiating to the axil la) Chest (Breasts): Chest: normal inspection of chest Gastrointestinal (Abdomen): normal bowel sounds, soft, nontender, no hepatosplenomegaly Musculoskeletal: Extremities: extremities normal to inspection; no cyanosis and no clubbing Skin: no rashes, warm and dry Neurologic: moves all extremities and awake; no focal motor deficits Psychiatric: A+Ox3, euthymic affect Lymphatic: no lymphedema Results & Data Results & Data Vital Signs (Past 12 Hours) Vital Signs Temp Pulse Pulse Resp BP Pulse Ox O2 Del Method 07/22/22 14:00 74 07/22/22 13:09 70 16 96 Nasal Cannula 07/22/22 10:45 36.8 C 76 18 126/79 92 Nasal Cannula 07/22/22 09:15 Nasal Cannula 07/22/22 09:20 95 Nasal Cannula 07/22/22 08:12 98 Nasal Cannula 07/22/22 08:11 36.4 C L 89 18 107/72 91 Room Air 07/22/22 06:40 79 O2 Flow Rate 07/22/22 14:00 07/22/22 13:09 2 07/22/22 10:45 1 07/22/22 09:15 1 07/22/22 09:20 1 07/22/22 08:12 2 07/22/22 08:11 07/22/22 06:40 Laboratory Results CBC, BMP, troponin reviewed Iron studies reviewed Blood cultures reviewed-no growth to date PG Care Time/CCT Total # of Minutes Spent Total Time Spent with Patient: Total time spent is greater than 50% in coordination of care (as documented) at patient's floor/unit and/or counseling patient: Coding Level of Care Code 11922 SUB INP/OBS CARE 3/50MIN Diagnoses Pneumonia J18.9 Rhinovirus infection B34.8 COPD (chronic obstructive pulmonary disease) J44.9 Chronic hypoxemic respiratory failure J96.11 Anemia D64.9 Elevated troponin R77.8 Murmur, cardiac R01.1
[2022-07-22] MEDS ORDERED: ENOXAPARIN INJ 40 MG/0.4 ML SYR SQ SCH (15:30)
[2022-07-22] MEDS: predniSONE 20 MG TAB PO SCH (16:15)
[2022-07-22] MEDS ORDERED: guaiFENesin/DEXTROM SYRUP 100MG/10MG 5ML UDC PO PRN (19:09)
[2022-07-22] MEDS: PANTOprazole 40 MG TAB PO SCH (21:22)
[2022-07-23] MEDS: ALBUTEROL HFA 8 GM INHALER INH SCH ×2 (01:17→07:47)
[2022-07-23] MEDS: AMPICILLIN/SULBACTAM SOD 1,500 MG in 0.9 % SODIUM CHLORIDE 100 ML IV SCH ×2 (03:57→11:13)
[2022-07-23 08:07] LABS: Basophils # (auto) 0.02 K/uL (0-0.2); Basophils % (auto) 0.1 %; Eosinophils # (auto) 0.01 K/uL (0-0.50); Eosinophils % (auto) 0.1 %; Hematocrit (blood only) 30.2 % (37.0-47.0); Hemoglobin 9.7 g/dl (12.0-16.0); Immature Granulocytes # (auto) 0.16 K/uL (0.01-0.20); Immature Granulocytes % (auto) 1.1 %; Lymphocytes # (auto) 1.12 K/uL (1.2-3.4); Lymphocytes % (auto) 7.8 %; Mean Corpuscular Hemoglobin 26.8 pg (25.0-34.0); Mean Corpuscular Hgb Conc 32.1 g/dL (32.0-36.0); Mean Corpuscular Volume 83.4 fL (80.0-100.0); Monocytes # (auto) 0.92 K/uL (0.11-0.59); Monocytes % (auto) 6.4 %; Neutrophils # (auto) 12.11 K/uL (1.40-6.50); Neutrophils % (auto) 84.5 %; Platelet Count 218 K/uL (130-400); RDW Coefficient of Variation 15.9 % (11.5-14.5); RDW Standard Deviation 48.1 fL (36.4-46.3); Red Blood Count 3.62 M/uL (4.20-5.40); White Blood Count 14.34 K/ul (4.8-10.8)
[2022-07-23 08:26] LABS: BUN Creatinine Ratio 24.7 (10-20); Creatinine Clr Calc Pharmacy 74.6 ml/min; Est GFR (African American) 100.2 ml/min; Est GFR (Non-African American) 86.4 ml/min; Potassium 3.8 mmol/L (3.5-5.1)
--- NOTE | 2022-07-23 08:51 | Electrocardiogram Report ---
Test Reason : Blood Pressure : / mmHG Vent. Rate : 093 BPM Atrial Rate : 093 BPM P-R Int : 122 ms QRS Dur : 084 ms QT Int : 366 ms P-R-T Axes : 055 049 083 degrees QTc Int : 455 ms Poor data quality, interpretation may be adversely affected Normal sinus rhythm Nonspecific ST abnormality Abnormal ECG No previous ECGs available Confirmed by Tomasz Hayes ([id number]) on 07/23/2022 8:50:54 AM Referred By: REFERRED SELF Confirmed By:Tomasz Hayes
[2022-07-23] MEDS ORDERED: IRON SUCROSE 300 MG in SODIUM CHLORIDE 0.9% 250 ML IV SCH (09:00)
[2022-07-23] MEDS: PANTOprazole 40 MG TAB PO SCH (09:23)
[2022-07-23] MEDS: AZITHROMYCIN 250 MG TAB PO SCH (09:23)
[2022-07-23] MEDS: predniSONE 20 MG TAB PO SCH (09:23)
[2022-07-23] MEDS: FLUTICASONE FUROATE 100MCG 14 PUFFS/INHALER INH SCH (09:24)
[2022-07-23] MEDS: UMECLIDINIUM/VILANTEROL 62.5/25MCG 7 PUFFS/INHALER INH SCH (09:24)
[2022-07-23] MEDS ORDERED: Nursing to Pharmacy Communication SCH (10:30)
--- NOTE | 2022-07-23 12:04 | XCELERA ---
[id number]
--- NOTE | 2022-07-23 12:20 | Discharge Summary ---
Date of Service July 23, 2022 Admission HPI Per Admitting Provider Sydnie Garner is a 67 year old with a past medical history of COPD, 43 pack year history of smoking (quit 5-6 year ago), chronic hypoxic respiratory failure who presented to the ER today as a walkin with complaints of congestion,cough and increasing SOB X 2 days. Patient states her initial symptoms began with congestion and productive cough 1 weeks ago and she went ot an urgent care center and was rx Levaquin one daily for 5 days and a tapering medrol dose pack for 1 week. She states initially after she finished the steroids and antibiotic she was feeling better. Then 2 days ago began to have increasing SOB and a n onproductive cough. She does follow with Dr Bradshaw (pulm) and uses her Trelegy/ellipta inhaler every day. Per the pulm note she is to wear 2 L O2 at night and if needed with exertion. She states she has home Oxygen but never uses it. She states her SOB is only with exertion. She denies any chest pain currently. She denies any GI sxs, diarrhea, abdominal pain, nausea, vomiting or dysphagia. She denies any hemoptysis or unintentional weight loss. VSS and patient is afebrile. WBC elevated at 27, procal normal, + entero/rhino, lactate pending. Initial trop elevated at 43.8, repeat trop is pending. CXR and CTA revealed no PE, multifocal airspace consolidation at both lung bases. Patient had EGD 03/14 with small H/H and duodenitis. Principal Diagnosis Viral pneumonia, acute exacerbation COPD, acute on chronic respiratory failure Discharge Exam General-alert and oriented x3, no fevers, no chills HEENT-head atraumatic and normocephalic, pupils equal and reactive to light, extraocular muscles intact Neck-no lymphadenopathy or thyromegaly, trachea midline Chest-diminished breath sounds bilaterally. No wheezing. No rhonchi. Cardiac-regular rate and rhythm, normal S1 and S2, systolic mitral valve murmur Abdomen-normal bowel sounds, nontender, no hepatosplenomegaly Extremities-no cyanosis, clubbing, or edema Neuro-cranial nerves II through XII intact, motor and sensory function within normal limits, strength symmetrical , no focal deficits Psych-normal affect, normal mood Discharge Data Allergies Allergy/AdvReac Type Severity Reaction Status Date / Time No Known Allergies Allergy Verified 03/22/22 13:27 Consultations 07/21/22 11:48 ED Decision to Admit Stat Ordered Studies 07/21/22 08:59 CT angio chest PE protocol Stat Hospital Course (1) Pneumonia: Suspected viral etiology. Much improved. Wheezing has resolved. Will discharge on oral Zithromax as a precautionary measure. Acute exacerbation of COPD is also improved with resolution of wheezing. Will discharge on a prednisone tapering dose. (2) Rhinovirus infection: As above. Supportive care. Isolation precautions while hospitalized (3) COPD (chronic obstructive pulmonary disease): Acute exacerbation present on admission has resolved with steroid therapy and nebulizers. Will discharge on a prednisone tapering dose. (4) Chronic hypoxemic respiratory failure: Acute on chronic respiratory failure with hypoxia present on admission. Now resolved. She is on room air. (5) Anemia: Chronic. Has a history of anemia in 2020. She has had EGD in 02/2021 which showed gastritis and was positive for Helicobacter pylori. She was treated for H. pylori at that time. Colonoscopy in 09/2020 with internal hemorrhoids nonbleeding. She has iron deficiency and has received intravenous Venofer. She will continue with outpatient oral iron supplementation. No obvious bleeding. Needs follow-up with GI for repeat EGD and colonoscopy, possible video capsule endoscopy as an outpat (6) Elevated troponin: No chest pain. No acute EKG changes. No evidence of acute coronary syndrome. Cardiac echo report is pending. Likely demand ischemia from hypoxia and pneumonia (7) Murmur, cardiac: 3/6 holosystolic murmur heard best at the apex radiating to the axilla. This appears to be of mitral valve etiology. Cardiac echo report is pending. Plan Home today, July 23, on prednisone tapering dose and azithromycin. Her primary care physician can follow-up with a cardiac echo report Total Time Total Time Spent Total Time Spent (In Minutes): 35 minutes Discharge Plan Discharge Items Patient Disposition: Home - Self-Care Reason For Visit: PNEUMONIA Discharge Diagnosis: Viral pneumonia, acute exacerbation COPD, acute on chronic respiratory failure Activity: Resume your previous activity Non-emergency contact: Primary Care Provider Call non-emergency contact if: you have any medication questions and your symptoms worsen Follow-up/Referrals: Sahara Becker MD [Primary Care Provider] - Diet: Regular and Heart Healthy Addtl Attending Provider Instructions: Take prednisone in a tapering dose fashion as directed. Take azithromycin daily for 5 more days Pending Studies at Discharge: Yes Studies:: Cardiac echo report Stand-Alone Forms: My [facility], Smoking Cessation Medications and DC Order Prescriptions: New azithromycin 250 mg Tablet 250 mg PO QAM Qty: 5 0RF prednisone 10 mg tablet See Rx Instructions .ROUTE .COMPLEX Qty: 12 0RF Rx Instructions: 10 mg orally 3 times a day for 2 days, then 10 mg twice a day for 2 days, then 10 mg daily for 2 days, then stop Continued albuterol sulfate 90 mcg/actuation HFA aerosol inhaler 2 inh INH Q6H PRN (Reason: shortness of breath or wheezing) Qty: 18 5RF Trelegy Ellipta 100-62.5-25 mcg blister with device 1 inh inhalation QAM Qty: 60 3RF Align 4 mg capsule 4 mg PO DAILY (DME) Oxygen Home Liters Per Minute See Rx Instructions .ROUTE .MEDSUPPLY Qty: 2 0RF Rx Instructions: As directed 2L with exertion multivitamin Liquid 30 ml PO DAILY Rx Instructions: Betty Coy Liquid Multivitamin Discharge Orders: Discharge Order (Routine); Ordered 07/23/22 Ordered By: Michel Carrasco Admission Data Admit Date/Time: 07/21/22 14:14 Attending Provider: Michel Carrasco Admit Provider: Albert Samayoa Primary Care Provider: Sahara Becker V. Other Providers: Albert Samayoa Coding Level of Care Code 06905 INP/OBS DISCH >30 MIN Diagnoses Pneumonia J18.9 Rhinovirus infection B34.8 COPD (chronic obstructive pulmonary disease) J44.9 Chronic hypoxemic respiratory failure J96.11 Anemia D64.9 Elevated troponin R77.8 Murmur, cardiac R01.1
== END 2022-07-23 13:47 | disposition home or self-care (01) | DRG 193 ==
LOC: ED 08:20 → 2W 14:14 → SUATTDRO 14:14 → 2W 15:36